=== PATIENT | female | born 1985 | race Caucasian/White ===

== ENCOUNTER 2019-10-01 13:22 | Emergency (ER) | payer SELFPAY ==
[~2019-10-01] VITALS: Ht 134.6 cm; Wt 75.0 kg
[2019-10-01 13:36] VITALS: TEMP 97.8
[2019-10-01] MEDS ORDERED: FLAGYL500 MG PO (15:24)
[2019-10-01 15:55] VITALS: BP 117/64; PULSE 64
== END 2019-10-01 15:55 | disposition home or self-care (01) ==
LOC: COL.ER 13:22
PROVIDERS: Physician Assistant
DX: N76.0 Acute vaginitis (principal); B96.89 Other specified bacterial agents as the cause of diseases classified elsewhere; Z20.2 Contact with and (suspected) exposure to infections with a predominantly sexual mode of transmission
CPT/HCPCS: J0696